=== PATIENT | female | born 1980 | race Two or more races ===

== ENCOUNTER 2019-07-28 19:43 | Emergency (ER) | payer MEDICAID ==
--- NOTE | 2019-07-28 20:08 | EDM.PDOC ---
ED HPI GENERAL MEDICAL PROBLEM - General Chief Complaint: General Stated Complaint: PT HAS LEG CRAMPS Time Seen by Provider: 07/28/19 19:52 - History of Present Illness INITIAL COMMENTS - FREE TEXT/NARRATIVE: HISTORY AND PHYSICAL: History of present illness: The patient is a 39-year-old female with a long-standing history of anxiety and psychiatric issues for which she takes multiple medications and follows with Selene Acosta at [facility] and presents with complaints of over a week of tingling in her arms and legs which is constant but seems to be worse at nighttime when she is trying to sleep. She says that it is not cramping it is more of a tingling sensation and it is discomforting. She has no other systemic complaints of fever chills chest pain shortness of breath abdominal pain nausea or vomiting. The patient says that she has been on these multiple medications for many years and discussed with Selene her provider getting off these medications as she has put on significant weight over the last 3 years. According to the patient her provider gave her a taper that she was to follow over one month to taper off and wean her off these medications. The patient said she was following that and that 2 weeks ago she abruptly stopped several of her medications because she "got inpatient". She says the symptoms started soon after this. She has tried to speak with her provider and has left at least 3 messages about what is going on and has not received a return call so she came here for evaluation. She is currently feeling intermittently anxious but it is not active currently and she is not having any strange or odd thoughts or any other psychiatric issues as a result of weaning herself off these medications. Her fianc at bedside says that she is acting appropriately and normally and they're not concerned about psychiatric issues only about the tingling sensations that she is having. She denies any recent trauma and has no weakness in her extremities. The patient denies that there is any swelling in her extremities or size discrepancy of these extremities she doesn't have any specific deep calf tenderness Review of systems: As per history of present illness and below otherwise all systems reviewed and negative. Past medical history: As per history of present illness and as reviewed below otherwise noncontributory. Surgical history: As per history of present illness and as reviewed below otherwise noncontributory. Social history: No reported history of drug or alcohol abuse. Family history: As per history of present illness and as reviewed below otherwise noncontributory. Physical exam: General: Well-developed well-nourished mildly overweight female who is nontoxic and vital signs are noted by me. She is interactive and appropriate HEENT: Atraumatic, normocephalic, negative for conjunctival pallor or scleral icterus, mucous membranes moist, throat clear, neck supple, nontender, trachea midline. Lungs: Clear to auscultation, breath sounds equal bilaterally, chest nontender. Heart: S1S2, regular rate and rhythm no overt murmurs Abdomen: Soft, nondistended, nontender. NABS Pelvis: Deferred Genitourinary: Deferred. Rectal: Deferred. Extremities: Atraumatic, negative for cords or calf pain. Neurovascular unremarkable. Neuro: Awake, alert, oriented. Cranial nerves II through XII unremarkable. Cerebellum unremarkable. Motor and sensory unremarkable throughout. Exam nonfocal. Diagnostics: CBC CMP magnesium CPK UA with reflex Therapeutics: I discussed with the patient that her abrupt cessation of medications may be triggering her symptoms and that we would be able to check some metabolic components and do some blood work and a urine test but other than that we would be limited in her evaluation of these symptoms. I discussed with her that I will try to help her get connected with her provider at [facility] so that she can have a dialogue about these medications and further care. Impression: Paresthesias of extremities, recent stoppage of long-term medications Definitive disposition and diagnosis as appropriate pending reevaluation and review of above. - Related Data Allergies Allergy/AdvReac Type Severity Reaction Status Date / Time iodine Allergy Hives Verified 07/28/19 19:46 Penicillins Allergy Cannot Verified 07/28/19 19:46 Remember Home Meds: Home Meds Amoxicillin [Amoxil] 1 cap PO BID 08/18/14 [History] ClonazePAM [KlonoPIN] 1 tab PO BID 08/18/14 [History] Hydrocodone/Acetaminophen [Hydrocodone-Acetaminophen 5-325] 1 - 2 tab PO ASDIRECTED PRN 08/18/14 [History] Ondansetron [Zofran] 1 tab PO ASDIRECTED 08/18/14 [History] PARoxetine [Paxil CR] 1 tab PO DAILY 08/18/14 [History] QUEtiapine [SEROquel XR] 0.5 tab PO DAILY 08/18/14 [History] lamoTRIgine [Lamotrigine] 150 mg PO DAILY 08/18/14 [History] Past Medical History HEENT History: Reports: None Cardiovascular History: Reports: None Respiratory History: Reports: None Gastrointestinal History: Reports: None Genitourinary History: Reports: None 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 Musculoskeletal History: Reports: None Neurological History: Reports: None Psychiatric History: Reports: Anxiety, Bipolar, Depression, Mood Swings Endocrine/Metabolic History: Reports: None Hematologic History: Reports: None Immunologic History: Reports: None Oncologic (Cancer) History: Reports: None Dermatologic History: Reports: None - Infectious Disease History Infectious Disease History: Reports: Chicken Pox - Past Surgical History Female Surgical History: Reports: None Social & Family History - Family History Family Medical History: Noncontributory - Tobacco Use Smoking Status *Q: Never Smoker Second Hand Smoke Exposure: No - Caffeine Use Caffeine Use: Reports: None - Recreational Drug Use Recreational Drug Use: No ED ROS GENERAL - Review of Systems Review Of Systems: ROS reveals no pertinent complaints other than HPI. ED EXAM, GENERAL - Physical Exam Exam: See Below (See dictation) Course - Vital Signs Last Recorded V/S: Last Vital Signs Temp 36.4 C 07/28/19 19:47 Pulse 75 07/28/19 19:47 Resp 16 07/28/19 19:47 BP 141/72 H 07/28/19 19:47 Pulse Ox 97 07/28/19 19:47 - Orders/Labs/Meds Labs: Laboratory Tests 07/28/19 07/28/19 07/28/19 Range/Units 20:14 20:14 20:18 WBC 10.78 (4.0-11.0) K/uL RBC 4.70 (4.30-5.90) M/uL Hgb 14.7 (12.0-16.0) g/dL Hct 43.8 (36.0-46.0) % MCV 93.2 (80.0-98.0) fL MCH 31.3 (27.0-32.0) pg MCHC 33.6 (31.0-37.0) g/dL RDW Std Deviation 45.7 (28.0-62.0) fl RDW Coeff of Jules 13 (11.0-15.0) % Plt Count 276 (150-400) K/uL MPV 10.40 (7.40-12.00) fL Neut % (Auto) 63.0 (48.0-80.0) % Lymph % (Auto) 27.3 (16.0-40.0) % Sierra % (Auto) 7.8 (0.0-15.0) % Eos % (Auto) 1.6 (0.0-7.0) % Baso % (Auto) 0.3 (0.0-1.5) % Neut # (Auto) 6.8 H (1.4-5.7) K/uL Lymph # (Auto) 2.9 H (0.6-2.4) K/uL Sierra # (Auto) 0.8 (0.0-0.8) K/uL Eos # (Auto) 0.2 (0.0-0.7) K/uL Baso # (Auto) 0.0 (0.0-0.1) K/uL Nucleated RBC % 0.0 /100WBC Nucleated RBCs # 0 K/uL Sodium 143 (136-145) mmol/L Potassium 4.5 (3.5-5.1) mmol/L Chloride 107 (98-107) mmol/L Carbon Dioxide 25.7 (21.0-32.0) mmol/L BUN 16 (7.0-18.0) mg/dL Creatinine 0.6 (0.6-1.0) mg/dL Est Cr Clr Drug Dosing 105.16 mL/min Estimated GFR (MDRD) > 60.0 ml/min Glucose 96 (74-106) mg/dL Calcium 8.3 L (8.5-10.1) mg/dL Magnesium 2.4 (1.8-2.4) mg/dL Total Bilirubin 0.1 L (0.2-1.0) mg/dL AST 13 L (15-37) IU/L ALT 17 (14-63) IU/L Alkaline Phosphatase 67 (46-116) U/L Creatine Kinase 58 (26-308) U/L Total Protein 6.8 (6.4-8.2) g/dL Albumin 3.4 (3.4-5.0) g/dL Globulin 3.4 (2.6-4.0) g/dL Albumin/Globulin Ratio 1.0 (0.9-1.6) Urine Color YELLOW Urine Appearance HAZY Urine pH 6.0 (5.0-8.0) Ur Specific Terral >= 1.030 (1.001-1.035) Urine Protein NEGATIVE (NEGATIVE) mg/dL Urine Glucose (UA) NEGATIVE (NEGATIVE) mg/dL Urine Ketones NEGATIVE (NEGATIVE) mg/dL Urine Occult Blood LARGE H (NEGATIVE) Urine Nitrite NEGATIVE (NEGATIVE) Urine Bilirubin NEGATIVE (NEGATIVE) Urine Urobilinogen 0.2 (<2.0) EU/dL Ur Leukocyte Esterase NEGATIVE (NEGATIVE) Urine RBC 10-15 (0-2/HPF) Urine WBC 1-3 (0-5/HPF) Ur Epithelial Cells FEW (NONE-FEW) Urine Bacteria FEW (NEGATIVE) Urine Mucus MODERATE (NONE-MOD) Departure - Departure Time of Disposition: 20:48 Disposition: Home, Self-Care 01 Condition: Good Clinical Impression: Paresthesias - Discharge Information Referrals: PCP,None [Primary Care Provider] - Forms: ED Department Discharge Additional Instructions: The following information is given to patients seen in the emergency department who are being discharged to home. This information is to outline your options for follow-up care. We provide all patients seen in our emergency department with a follow-up referral. The need for follow-up, as well as the timing and circumstances, are variable depending upon the specifics of your emergency department visit. If you don't have a primary care physician on staff, we will provide you with a referral. We always advise you to contact your personal physician following an emergency department visit to inform them of the circumstance of the visit and for follow-up with them and/or the need for any referrals to a consulting specialist. The emergency department will also refer you to a specialist when appropriate. This referral assures that you have the opportunity for followup care with a specialist. All of these measure are taken in an effort to provide you with optimal care, which includes your followup. Under all circumstances we always encourage you to contact your private physician who remains a resource for coordinating your care. When calling for followup care, please make the office aware that this follow-up is from your recent emergency room visit. If for any reason you are refused follow-up, please contact the [facility] emergency department at and ask to speak to the emergency department charge nurse. [address] [place] [address] Please drink more hydration such as water juices and Gatorade as your testing today indicates that you need more hydration. Please connect with your provider at [facility] to discuss your recent stoppage of medications and your current symptoms for further care and evaluation. Return to ER as needed and as discussed
[2019-07-28 20:43] LABS: BLOOD UREA NITROGEN,BUN 16 mg/dL (7.0-18.0); CARBON DIOXIDE,CO2 25.7 mmol/L (21.0-32.0); CHLORIDE,CL 107 mmol/L (98-107); GLUCOSE RANDOM 96 mg/dL (74-106); POTASSIUM,K 4.5 mmol/L (3.5-5.1); SODIUM,NA 143 mmol/L (136-145)
[2019-07-28 21:03] VITALS: BP 132/78; PULSE 79
== END 2019-07-28 21:02 | disposition home or self-care (01) ==
LOC: MW.ED 19:43
DX: R20.2 Paresthesia of skin (principal); Z88.0 Allergy status to penicillin; Z91.048 Other nonmedicinal substance allergy status; Z79.899 Other long term (current) drug therapy
CPT/HCPCS: 36415; 80053; 81001; 82550; 83735; 85025; 99284

== ENCOUNTER 2019-08-13 17:32 | Emergency (ER) | payer MEDICAID ==
--- NOTE | 2019-08-13 17:33 | EDM.PDOC ---
ED HPI GENERAL MEDICAL PROBLEM - General Chief Complaint: ENT Problem Stated Complaint: STREP THROAT Time Seen by Provider: 08/13/19 17:43 Source of Information: Reports: Patient History Limitations: Reports: No Limitations - History of Present Illness INITIAL COMMENTS - FREE TEXT/NARRATIVE: HISTORY AND PHYSICAL: History of present illness: Patient is a 39-year-old female presents to the ED With complaint of sore throat. She states she is having pain with swallowing since yesterday. She reports history of strep throat. Denies fevers, chills, nausea, vomiting, abdominal pain. Review of systems: As per history of present illness and below otherwise all systems reviewed and negative. Past medical history: As per history of present illness and as reviewed below otherwise noncontributory. Surgical history: As per history of present illness and as reviewed below otherwise noncontributory. Social history: No reported history of drug or alcohol abuse. Family history: As per history of present illness and as reviewed below otherwise noncontributory. Physical exam: General: Patient sitting comfortably in no acute distress and nontoxic appearing HEENT: Tonsils are 1+ and erythematous without exudate. Atraumatic, normocephalic, pupils reactive, negative for conjunctival pallor or scleral icterus, mucous membranes moist, throat clear, neck supple, nontender, trachea midline. No meningeal signs. Lungs: Clear to auscultation, breath sounds equal bilaterally, chest nontender. Heart: S1S2, regular, negative for clicks, rubs, or overt murmur. Abdomen: Soft, nondistended, nontender. Negative for masses or hepatosplenomegaly. Negative for costovertebral tenderness. No rigidity, rebound , guarding. Pelvis: Stable nontender. Genitourinary: Deferred. Rectal: Deferred. Extremities: Atraumatic, negative for cords or calf pain. Neurovascular unremarkable. Neuro: Awake, alert, oriented. Cranial nerves II through XII unremarkable. Cerebellum unremarkable. Motor and sensory unremarkable throughout. Exam nonfocal. Notes: Diagnostics: rapid strep Therapeutics: [] Prescriptions: Keflex Impression: Strep pharyngitis Plan: take antibiotic as instructed Alternate tylenol and ibuprofen as needed Follow up with primary care provider Return to ED as needed as discussed Definitive disposition and diagnosis as appropriate pending reevaluation and review of above. - Related Data Allergies Allergy/AdvReac Type Severity Reaction Status Date / Time iodine Allergy Hives Verified 08/13/19 17:46 Penicillins Allergy Cannot Verified 08/13/19 17:46 Remember Home Meds: Home Meds Amoxicillin [Amoxil] 1 cap PO BID 08/18/14 [History] ClonazePAM [KlonoPIN] 1 tab PO BID 08/18/14 [History] Hydrocodone/Acetaminophen [Hydrocodone-Acetaminophen 5-325] 1 - 2 tab PO ASDIRECTED PRN 08/18/14 [History] Ondansetron [Zofran] 1 tab PO ASDIRECTED 08/18/14 [History] PARoxetine [Paxil CR] 1 tab PO DAILY 08/18/14 [History] QUEtiapine [SEROquel XR] 0.5 tab PO DAILY 08/18/14 [History] lamoTRIgine [Lamotrigine] 150 mg PO DAILY 08/18/14 [History] Cephalexin [Keflex] 500 mg PO BID 10 Days #20 capsule 08/13/19 [Rx] Past Medical History HEENT History: Reports: None Cardiovascular History: Reports: None Respiratory History: Reports: None Gastrointestinal History: Reports: None Genitourinary History: Reports: None 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 Musculoskeletal History: Reports: None Neurological History: Reports: None Psychiatric History: Reports: Anxiety, Bipolar, Depression, Mood Swings Endocrine/Metabolic History: Reports: None Hematologic History: Reports: None Immunologic History: Reports: None Oncologic (Cancer) History: Reports: None Dermatologic History: Reports: None - Infectious Disease History Infectious Disease History: Reports: Chicken Pox - Past Surgical History Female Surgical History: Reports: None Social & Family History - Family History Family Medical History: Noncontributory - Caffeine Use Caffeine Use: Reports: None ED ROS ENT - Review of Systems Review Of Systems: ROS reveals no pertinent complaints other than HPI. ED EXAM, ENT - Physical Exam Exam: See Below (see dictation) Course - Vital Signs Last Recorded V/S: Last Vital Signs Temp 97.7 F 08/13/19 17:48 Pulse 122 H 08/13/19 17:48 Resp 16 08/13/19 17:48 BP 140/79 08/13/19 17:48 Pulse Ox 96 08/13/19 17:48 Departure - Departure Time of Disposition: 18:04 Disposition: Home, Self-Care 01 Condition: Good Clinical Impression: Strep pharyngitis - Discharge Information Prescriptions: Cephalexin [Keflex] 500 mg PO BID 10 Days #20 capsule Referrals: PCP,None [Primary Care Provider] - Forms: ED Department Discharge Additional Instructions: The following information is given to patients seen in the emergency department who are being discharged to home. This information is to outline your options for follow-up care. We provide all patients seen in our emergency department with a follow-up referral. The need for follow-up, as well as the timing and circumstances, are variable depending upon the specifics of your emergency department visit. If you don't have a primary care physician on staff, we will provide you with a referral. We always advise you to contact your personal physician following an emergency department visit to inform them of the circumstance of the visit and for follow-up with them and/or the need for any referrals to a consulting specialist. The emergency department will also refer you to a specialist when appropriate. This referral assures that you have the opportunity for follow-up care with a specialist. All of these measure are taken in an effort to provide you with optimal care, which includes your follow-up. Under all circumstances we always encourage you to contact your private physician who remains a resource for coordinating your care. When calling for follow-up care, please make the office aware that this follow-up is from your recent emergency room visit. If for any reason you are refused follow-up, please contact the [facility] Emergency Department at and asked to speak to the emergency department charge nurse. [facility] [address] [place] [id number] [facility] [address] [place] [id number] take antibiotic as instructed Alternate tylenol and ibuprofen as needed Follow up with primary care provider Return to ED as needed as discussed
[2019-08-13 17:51] VITALS: BP 140/79; PULSE 122
== END 2019-08-13 18:18 | disposition home or self-care (01) ==
LOC: MW.ED 17:32
DX: J02.0 Streptococcal pharyngitis (principal); F31.9 Bipolar disorder, unspecified; F41.9 Anxiety disorder, unspecified; Z79.899 Other long term (current) drug therapy; Z88.0 Allergy status to penicillin; Z88.8 Allergy status to other drugs, medicaments and biological substances
CPT/HCPCS: 87880-QW; 99283

== ENCOUNTER 2019-09-05 12:41 | Emergency (ER) | payer MEDICAID ==
[2019-09-05 12:54] VITALS: PULSE 110
[2019-09-05 13:04] VITALS: BP 133/91
--- NOTE | 2019-09-05 13:07 | EDM.PDOC ---
ED HPI GENERAL MEDICAL PROBLEM - General Chief Complaint: Behavioral/Psych Stated Complaint: JUST NOT FEELING RIGHT Time Seen by Provider: 09/05/19 12:54 - History of Present Illness INITIAL COMMENTS - FREE TEXT/NARRATIVE: HISTORY AND PHYSICAL: History of present illness: Patient 39-year-old female with history of bipolar disorder, schizophrenia and anxiety presents with a concern of medical screening exam and possible referral. Patient does have established mental health care locally she does not feel she needs inpatient nor does her she denies suicidal homicidal ideation. Review of systems: As per history of present illness and below otherwise all systems reviewed and negative. Past medical history: As per history of present illness and as reviewed below otherwise noncontributory. Surgical history: As per history of present illness and as reviewed below otherwise noncontributory. Social history: No reported history of drug or alcohol abuse. Family history: As per history of present illness and as reviewed below otherwise noncontributory. Physical exam: HEENT: Atraumatic, normocephalic, pupils reactive, negative for conjunctival pallor or scleral icterus, mucous membranes moist, throat clear, neck supple, nontender, trachea midline. Lungs: Clear to auscultation, breath sounds equal bilaterally, chest nontender. Heart: S1S2, regular, negative for clicks, rubs, or JVD. Abdomen: Soft, nondistended, nontender. Negative for masses or hepatosplenomegaly. Negative for costovertebral tenderness. Pelvis: Stable nontender. Genitourinary: Deferred. Rectal: Deferred. Extremities: Atraumatic, negative for cords or calf pain. Neurovascular unremarkable. Neuro: Awake, alert, oriented. Cranial nerves II through XII unremarkable. Cerebellum unremarkable. Motor and sensory unremarkable throughout. Exam nonfocal. Diagnostics: Deferred Therapeutics: None Impression: #1 history of bipolar disorder #2 history of anxiety #3 medical screening exam # 4 history of schizophrenia Definitive disposition and diagnosis as appropriate pending reevaluation and review of above. - Related Data Allergies Allergy/AdvReac Type Severity Reaction Status Date / Time iodine Allergy Hives Verified 09/05/19 12:45 Penicillins Allergy Cannot Verified 09/05/19 12:45 Remember Home Meds: Home Meds Doxylamine Succinate [Unisom] 25 mg PO BEDTIME 09/05/19 [History] FLUoxetine HCl [Fluoxetine] 60 mg PO DAILY 09/05/19 [History] Haloperidol [Haldol] 5 mg PO ASDIRECTED 09/05/19 [History] Melatonin 3 mg PO BEDTIME 09/05/19 [History] Ziprasidone HCl [Geodon] 20 mg PO BID 09/05/19 [History] busPIRone [Buspar] 30 mg PO BID 09/05/19 [History] diphenhydrAMINE [Benadryl] 25 mg PO BEDTIME 09/05/19 [History] Past Medical History HEENT History: Reports: None Cardiovascular History: Reports: None Respiratory History: Reports: None Gastrointestinal History: Reports: None Genitourinary History: Reports: None 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 Musculoskeletal History: Reports: None Neurological History: Reports: None Psychiatric History: Reports: Anxiety, Bipolar, Depression, Mood Swings, Psych Hospitalization(s) Endocrine/Metabolic History: Reports: None Hematologic History: Reports: None Immunologic History: Reports: None Oncologic (Cancer) History: Reports: None Dermatologic History: Reports: None - Infectious Disease History Infectious Disease History: Reports: Chicken Pox - Past Surgical History Female Surgical History: Reports: None Social & Family History - Family History Family Medical History: Noncontributory - Caffeine Use Caffeine Use: Reports: None - Recreational Drug Use Recreational Drug Use: No ED ROS GENERAL - Review of Systems Review Of Systems: ROS reveals no pertinent complaints other than HPI. ED EXAM, GENERAL - Physical Exam Exam: See Below (dictation) Course - Vital Signs Last Recorded V/S: Last Vital Signs Temp 35.9 C 09/05/19 12:48 Pulse 110 H 09/05/19 12:48 Resp 21 H 09/05/19 12:48 BP 133/91 H 09/05/19 13:02 Pulse Ox 95 09/05/19 12:48 Departure - Departure Time of Disposition: 13:06 Disposition: Home, Self-Care 01 Condition: Good Clinical Impression: Anxiety, Schizophrenia, History of bipolar disorder - Discharge Information Referrals: PCP,Unknown [Primary Care Provider] - Additional Instructions: The following information is given to patients seen in the emergency department who are being discharged to home. This information is to outline your options for follow-up care. We provide all patients seen in our emergency department with a follow-up referral. The need for follow-up, as well as the timing and circumstances, are variable depending upon the specifics of your emergency department visit. If you don't have a primary care physician on staff, we will provide you with a referral. We always advise you to contact your personal physician following an emergency department visit to inform them of the circumstance of the visit and for follow-up with them and/or the need for any referrals to a consulting specialist. The emergency department will also refer you to a specialist when appropriate. This referral assures that you have the opportunity for followup care with a specialist. All of these measure are taken in an effort to provide you with optimal care, which includes your followup. Under all circumstances we always encourage you to contact your private physician who remains a resource for coordinating your care. When calling for followup care, please make the office aware that this follow-up is from your recent emergency room visit. If for any reason you are refused follow-up, please contact the [facility] emergency department at and asked to speak to the emergency department charge nurse. Follow-up primary medical doctor in mental health as discussed return as needed as discussed
== END 2019-09-05 13:21 | disposition home or self-care (01) ==
LOC: MW.ED 12:41
DX: F41.9 Anxiety disorder, unspecified (principal); F20.9 Schizophrenia, unspecified; F31.9 Bipolar disorder, unspecified; Z79.899 Other long term (current) drug therapy; Z88.0 Allergy status to penicillin; Z88.8 Allergy status to other drugs, medicaments and biological substances
CPT/HCPCS: 99284

== ENCOUNTER 2019-09-09 11:05 | Emergency (ER) | payer MEDICAID ==
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
--- NOTE | 2019-09-09 13:19 | CT ---
CT cervical spine Technique: Multiple axial sections were obtained from above C1 inferiorly to the bottom of T2. Reconstructed sagittal and coronal images were reviewed. Comparison: No previous cervical spine imaging is available. Findings: Vertebral body heights and disc spaces are maintained. No fracture is identified. No bony central or bony neural foraminal stenosis is seen. Visualized lung apices are clear. No abnormal subluxation is seen. Soft tissue windows were obtained which shows no discrete soft tissue abnormality. Impression: 1. Nothing acute is seen on CT study of the cervical spine. 2. No discrete soft tissue findings are seen. Diagnostic code #1 MTDD
--- NOTE | 2019-09-09 13:20 | CT ---
Head CT Technique: Multiple axial sections through the brain were obtained. Intravenous contrast was not utilized. Comparison: No prior intracranial imaging is available. Findings: Ventricles along with basal cisterns and sulci over the convexities are within normal limits for the patient's age. No abnormal parenchymal densities are seen. No evidence of intracranial hemorrhage. No midline shift or mass effect is seen. Bone window settings were reviewed which shows no acute calvarial abnormality. Visualized sinuses show nothing acute. Mastoid sinuses are clear. Impression: Nothing acute is identified on noncontrast head CT exam. Diagnostic code #1 MTDD
[2019-09-09 13:26] LABS: ACETAMINOPHEN <2.0 ug/mL; BLOOD UREA NITROGEN,BUN 8 mg/dL (7.0-18.0); CARBON DIOXIDE,CO2 27.4 mmol/L (21.0-32.0); CHLORIDE,CL 103 mmol/L (98-107); GLUCOSE RANDOM 109 mg/dL (74-106); POTASSIUM,K 3.3 mmol/L (3.5-5.1); SODIUM,NA 142 mmol/L (136-145)
[2019-09-09] MEDS ORDERED: LORazepam 1 MG Tab PO ONE (14:26)
[2019-09-09 14:52] VITALS: BP 145/102; PULSE 92
== END 2019-09-09 15:01 | disposition home or self-care (01) ==
LOC: MW.ED 11:05
DX: F29 Unspecified psychosis not due to a substance or known physiological condition (principal); R45.851 Suicidal ideations; M54.2 Cervicalgia; F41.9 Anxiety disorder, unspecified; F32.9 Major depressive disorder, single episode, unspecified; F20.9 Schizophrenia, unspecified; Z88.8 Allergy status to other drugs, medicaments and biological substances; Z88.0 Allergy status to penicillin; Z79.899 Other long term (current) drug therapy; V48.6XXA Car passenger injured in noncollision transport accident in traffic accident, initial encounter; Y93.39 Activity, other involving climbing, rappelling and jumping off; Y92.410 Unspecified street and highway as the place of occurrence of the external cause
CPT/HCPCS: 36415; 70450; 72125; 80053; 80305; 80320; 80329; 81003; 84443; 84702; 85025; 99285; A9270; 99284; G0480

== ENCOUNTER 2019-09-23 11:01 | Emergency (ER) | payer MEDICAID ==
[2019-09-23 11:10] VITALS: BP 151/97; PULSE 117
[2019-09-23] MEDS ORDERED: hydrOXYzine HCl 25 MG Tab PO ONE (11:20)
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
== END 2019-09-23 12:11 | disposition home or self-care (01) ==
LOC: MW.ED 11:01
DX: F41.9 Anxiety disorder, unspecified (principal); F31.9 Bipolar disorder, unspecified; Z88.0 Allergy status to penicillin; Z88.8 Allergy status to other drugs, medicaments and biological substances; Z79.899 Other long term (current) drug therapy
CPT/HCPCS: 93005; 99283; A9270

== ENCOUNTER 2019-09-25 18:46 | Emergency (ER) | payer MEDICAID | END 2019-09-25 20:01 | disposition left against medical advice (07) | LOC: MW.ED 18:46 | DX: Z53.21 Procedure and treatment not carried out due to patient leaving prior to being seen by health care provider (principal) ==

== ENCOUNTER 2019-11-04 08:07 | Emergency (ER) | payer MEDICAID ==
[2019-11-04] MEDS ORDERED: LORazepam 2 MG/ML SDV IM ONE (08:59)
--- NOTE | 2019-11-04 10:16 | EDM.PDOCBH ---
ED HPI GENERAL MEDICAL PROBLEM - General Chief Complaint: Behavioral/Psych Stated Complaint: PAIN ATTACKS Time Seen by Provider: 11/04/19 09:25 Source of Information: Reports: Patient History Limitations: Reports: No Limitations - History of Present Illness INITIAL COMMENTS - FREE TEXT/NARRATIVE: Patient is 39-year-old female with a past medical history of behavioral health, generalized anxiety disorder with panic attacks, substance abuse. Patient is complaining of having a panic attack. Panic attack has been ongoing for the past 2 days. Patient denies taking any medication for this as she has not been prescribed clonazepam in a while. States she feels anxious with generalized tingling in her fingers and sensation of dread. Patient denies have any specific symptoms and denies any drug use over the past several days. Patient denies chest pain shortness of breath, fevers or recent illnesses. Times are consistent with prior panic attacks. There normally improved with benzodiazepine medications - Related Data Allergies Allergy/AdvReac Type Severity Reaction Status Date / Time iodine Allergy Hives Verified 11/04/19 08:17 Penicillins Allergy Cannot Verified 11/04/19 08:17 Remember Home Meds: Home Meds Ziprasidone HCl [Geodon] 80 mg PO BID 09/05/19 [History] busPIRone [Buspar] 30 mg PO TID 09/05/19 [History] DULoxetine HCl [Cymbalta] 60 mg PO DAILY 09/23/19 [History] Past Medical History - Past Health History Medical/Surgical History: Denies Medical/Surgical History HEENT History: Reports: None, Other (See Below) Cardiovascular History: Reports: None, Other (See Below) Other Cardiovascular History: unable to assess Respiratory History: Reports: None, Other (See Below) Other Respiratory History: unable to assess Gastrointestinal History: Reports: None, Other (See Below) Other Gastrointestinal History: unable to assess Genitourinary History: Reports: None, Other (See Below) Other Genitourinary History: unable to assess CARPET SEWING MACHINE OPERATOR History: Reports: None, Other (See Below) Other CARPET SEWING MACHINE OPERATOR History: unable to assess Musculoskeletal History: Reports: None, Other (See Below) Other Musculoskeletal History: unable to assess Neurological History: Reports: None, Other (See Below) Other Neuro History: unable to assess Psychiatric History: Reports: Anxiety, Bipolar, Depression, Mood Swings, Other ( See Below), Psych Hospitalization(s) Other Psychiatric History: unable to assess Endocrine/Metabolic History: Reports: None, Other (See Below) Other Endocrine/Metabolic History: unable to assess Hematologic History: Reports: None, Other (See Below) Other Hematologic History: unable to assess Immunologic History: Reports: None, Other (See Below) Other Immunologic History: unable to assess Oncologic (Cancer) History: Reports: None, Other (See Below) Other Oncologic History: unable to assess Dermatologic History: Reports: None, Other (See Below) Other Dermatologic History: unable to assess - Infectious Disease History Infectious Disease History: Reports: Chicken Pox, Other (See Below) Other Infectious Disease History: unable to assess - Past Surgical History HEENT Surgical History: Reports: None, Other (See Below) Cardiovascular Surgical History: Reports: None, Other (See Below) Respiratory Surgical History: Reports: None, Other (See Below) GI Surgical History: Reports: None, Other (See Below) Female Surgical History: Reports: None, Other (See Below) Endocrine Surgical History: Reports: None, Other (See Below) Neurological Surgical History: Reports: None, Other (See Below) Musculoskeletal Surgical History: Reports: None, Other (See Below) Dermatological Surgical History: Reports: None, Other (See Below) Social & Family History - Family History Family Medical History: Unobtainable - Tobacco Use Smoking Status *Q: Never Smoker - Caffeine Use Caffeine Use: Reports: None Caffeine Use Comment: unable to assess - Recreational Drug Use Recreational Drug Use: No ED ROS GENERAL - Review of Systems Review Of Systems: See Below Free Text/Narrative/Comment: In addition to that documented in the HPI above, the additional ROS was obtained : Constitutional: Denies fevers or chills Eyes: Denies vision changes ENMT: Denies sore throat CV: Denies chest pain Resp: Denies SOB GI: Denies vomiting or diarrhea : Denies painful urination MSK: Denies recent trauma Skin: Denies new rashes Neuro: Denies new numbness or tingling or weakness Endocrine: Denies unexpected weight loss Heme: Denies bleeding disorders ED EXAM, BEHAVIORAL HEALTH - Physical Exam Exam: See Below Text/Narrative:: I have reviewed the triage vital signs Const: Well nourished, well developed, appears stated age Eyes: PERRL, no conjunctival injection HENT: NCAT, Neck supple without meningismus CV: RRR, Warm, well-perfused extremities RESP: CTAB, Unlabored respiratory effort GI: soft, non-tender, non-distended, no masses MSK: No gross deformities appreciated Skin: Warm, dry. No rashes Neuro: Alert, cigar head stringer II-XII grossly intact. Sensation and motor function of extremities grossly intact. Psych: Appears generally anxious COURSE, BEHAVIORAL HEALTH COMP - Course Vital Signs: Last Vital Signs Temp 35.7 C 11/04/19 08:15 Pulse 129 H 11/04/19 08:15 Resp 18 11/04/19 08:15 BP 142/88 H 11/04/19 08:15 Pulse Ox 97 11/04/19 08:15 Orders, Labs, Meds: Medications Discontinued Medications Generic Name Dose Route Start Last Admin Trade Name Silvana PRN Reason Stop Dose Admin Lorazepam 2 mg 11/04/19 08:59 11/04/19 09:11 Ativan IM 11/04/19 09:00 1 mg ONETIME ONE Administration Departure - Departure Time of Disposition: 10:14 Disposition: Home, Self-Care 01 Condition: Good Clinical Impression: Panic disorder - Discharge Information Instructions: Panic Attack, [id number] Referrals: Maria G Acosta HEAD OF BIOLOGY [Primary Care Provider] - Sepsis Event Note - Evaluation Sepsis Screening Result: No Definite Risk - Focused Exam Vital Signs: Vital Signs Temp Pulse Resp BP Pulse Ox 11/04/19 08:15 35.7 C 129 H 18 142/88 H 97 Date Exam was Performed: 11/04/19 Time Exam was Performed: 10:10 - Assessment/Plan Assessment:: Patient is 31-year-old female presenting with generalized anxiety disorder with panic attack. Patient has symptoms consistent with prior panic attacks and does not have any evidence of cardiac or respiratory issues at this time. There is low concern for acute coronary syndrome, PE, or arrhythmia. Patient symptoms improved after administration of 1 mg of Ativan IM. Patient instructed to follow-up with psychiatry as an outpatient for management of chronic generalized anxiety disorder. Patient not suicidal homicidal or acutely psychotic and therefore can be discharged home. Patient is not overly sedated and given precautions about operating motor vehicle
[2019-11-04 10:30] VITALS: BP 119/78; PULSE 93
== END 2019-11-04 10:28 | disposition home or self-care (01) ==
LOC: MW.ED 08:07
DX: F41.0 Panic disorder [episodic paroxysmal anxiety] (principal); Z88.0 Allergy status to penicillin; Z88.8 Allergy status to other drugs, medicaments and biological substances; Z79.899 Other long term (current) drug therapy
CPT/HCPCS: 96372; 99283; J2060

== ENCOUNTER 2019-11-17 12:02 | Emergency (ER) | payer MEDICAID ==
[2019-11-17] MEDS ORDERED: LORazepam 2 MG/ML SDV IVPUSH STA (12:41)
[2019-11-17] MEDS ORDERED: diphenhydrAMINE 50 MG/ML SDV IVPUSH ONE (12:41)
[2019-11-17] MEDS ORDERED: Haloperidol Lactate 5 MG/ML SDV IM ONE (12:43)
--- NOTE | 2019-11-17 13:37 | EDM.PDOC ---
ED HPI GENERAL MEDICAL PROBLEM - General Chief Complaint: Behavioral/Psych Stated Complaint: PANIC ATTACK Time Seen by Provider: 11/17/19 12:28 - History of Present Illness INITIAL COMMENTS - FREE TEXT/NARRATIVE: HPI 39 female with schizophrenia, bipolar disorder, psychosis, anxiety/panic disorder, and a history of PCP and amphetamine abuse presents complaining of a panic attack that began at home has been refractory to attempts to refocus her thinking. Denies chest pain, shortness breath, or recent illness. ROS with no recent constitutional symptoms. Exam HR 93, RR 20, BP 132/83, T 35.6C, SaO2 100% on room air. Gen: Pleasant, non-toxic appearing, resting comfortably HEENT: NC, AT, PEERL, EOMI. Resp: Clear to auscultation bilaterally. Unlabored respirations with a normal work of breathing. Card: Regular rate and rhythm. Extremities warm and well perfused. GI: Non-distended. : Deferred MSK: No visible deformities, strength and tone without visually appreciable deficit. Neuro: alert and oriented 3, no facial asymmetry, vision and hearing WNL. Heme/Lymph: Deferred Skin: Normal color with no visible lesions (other than noted above). Psych: markedly anxious mood and affect. MDM Previous chart, nursing note, and vitals reviewed. A: 39 female with schizophrenia, bipolar disorder, psychosis, anxiety/panic disorder, and a history of PCP and amphetamine abuse presents complaining of a panic attack that began at home has been refractory to attempts to refocus her thinking. DDx & Evaluation: 1 mg haloperidol, 12.5 mg diphenhydramine and 0.5 mg Ativan ordered. Patient declined haloperidol. Patient with improvement in symptoms, discharge with PCP follow-up recommended. No features suggestive of ACS, PE, infection, or other acute medical process that would be a precipitating event for the patients anxiety. Impression: anxiety. - Related Data Allergies Allergy/AdvReac Type Severity Reaction Status Date / Time iodine Allergy Hives Verified 11/17/19 12:30 Penicillins Allergy Cannot Verified 11/17/19 12:30 Remember Home Meds: Home Meds Ziprasidone HCl [Geodon] 80 mg PO BID 09/05/19 [History] busPIRone [Buspar] 30 mg PO TID 09/05/19 [History] DULoxetine HCl [Cymbalta] 60 mg PO DAILY 09/23/19 [History] Past Medical History - Past Health History Medical/Surgical History: Denies Medical/Surgical History HEENT History: Reports: None, Other (See Below) Cardiovascular History: Reports: None, Other (See Below) Other Cardiovascular History: unable to assess Respiratory History: Reports: None, Other (See Below) Other Respiratory History: unable to assess Gastrointestinal History: Reports: None, Other (See Below) Other Gastrointestinal History: unable to assess Genitourinary History: Reports: None, Other (See Below) Other Genitourinary History: unable to assess SOCIAL SERVICES History: Reports: None, Other (See Below) Other SOCIAL SERVICES History: unable to assess Musculoskeletal History: Reports: None, Other (See Below) Other Musculoskeletal History: unable to assess Neurological History: Reports: None, Other (See Below) Other Neuro History: unable to assess Psychiatric History: Reports: Anxiety, Bipolar, Depression, Mood Swings, Other ( See Below), Psych Hospitalization(s) Other Psychiatric History: unable to assess Endocrine/Metabolic History: Reports: None, Other (See Below) Other Endocrine/Metabolic History: unable to assess Hematologic History: Reports: None, Other (See Below) Other Hematologic History: unable to assess Immunologic History: Reports: None, Other (See Below) Other Immunologic History: unable to assess Oncologic (Cancer) History: Reports: None, Other (See Below) Other Oncologic History: unable to assess Dermatologic History: Reports: None, Other (See Below) Other Dermatologic History: unable to assess - Infectious Disease History Infectious Disease History: Reports: None Other Infectious Disease History: unable to assess - Past Surgical History HEENT Surgical History: Reports: None, Other (See Below) Cardiovascular Surgical History: Reports: None, Other (See Below) Respiratory Surgical History: Reports: None, Other (See Below) GI Surgical History: Reports: None, Other (See Below) Female Surgical History: Reports: None, Other (See Below) Endocrine Surgical History: Reports: None, Other (See Below) Neurological Surgical History: Reports: None, Other (See Below) Musculoskeletal Surgical History: Reports: None, Other (See Below) Dermatological Surgical History: Reports: None, Other (See Below) Social & Family History - Family History Family Medical History: Unobtainable - Tobacco Use Smoking Status *Q: Never Smoker - Caffeine Use Caffeine Use: Reports: None Caffeine Use Comment: unable to assess - Recreational Drug Use Recreational Drug Use: No ED ROS GENERAL - Review of Systems Review Of Systems: See Below ED EXAM, GENERAL - Physical Exam Exam: See Below Course - Vital Signs Last Recorded V/S: Last Vital Signs Temp 35.6 C 11/17/19 12:30 Pulse 93 11/17/19 12:30 Resp 20 11/17/19 12:30 BP 132/83 11/17/19 12:30 Pulse Ox 100 11/17/19 12:30 - Orders/Labs/Meds Meds: Medications Discontinued Medications Generic Name Dose Route Start Last Admin Trade Name Silvana PRN Reason Stop Dose Admin Diphenhydramine HCl 12.5 mg 11/17/19 12:41 11/17/19 12:54 Benadryl IVPUSH 11/17/19 12:42 12.5 mg ONETIME ONE Administration Haloperidol Lactate 1 mg 11/17/19 12:43 11/17/19 12:54 Haldol IM 11/17/19 12:44 Not Given ONETIME ONE Lorazepam 0.5 mg 11/17/19 12:41 11/17/19 12:54 Ativan IVPUSH 11/17/19 12:42 0.5 mg NOW STA Administration Departure - Departure Time of Disposition: 13:35 Disposition: Home, Self-Care 01 Clinical Impression: Anxiety - Discharge Information Referrals: Maria G Acosta CUSTODIAL FOREMAN [Primary Care Provider] - Additional Instructions: You were in seen in the [facility] Emergency Department for evaluation of anxiety. Please follow up with your mental health provider within 24 hours. Madeleine read and follow all of the instructions below. Please follow up with your primary care physician as needed. When calling for follow-up care, please make the office aware that this follow-up is from your recent emergency room visit. If for any reason you are refused follow-up, please contact the [facility] Emergency Department at and asked to speak to the emergency department charge nurse. Your care today was limited to identifying and treating emergent medical problems only. Many people have subtle differences in their test results that require follow up with their outpatient physician(s) to correctly determine if this represents a normal variation or concerning abnormality with respect to your specific health. The care given to you today was limited to identifying and treating emergent medical problems - you need to request a copy of all of your medical records from today's visit and follow up with your outpatient physician(s) to review both today's visit and your overall health. If you have any new symptoms or if you are at all concerned about your health please return immediately to the emergency department. Prescriptions: If you are uninsured or have financial difficulties with filling your prescription(s), you may consider using a free pharmacy discount service such as [employer] ([employer] [facility]) or [facility] ([employer]). These services allow you to search for a medication on your phone (or computer) and obtain a coupon that usually has a significant discount from the list dempsey at a pharmacy. Your physician as well as [facility] does not have a financial relationship with either of these services. You may also wish to speak with your physician to determine if lower cost prescriptions are possible. Obtaining primary care: 1. [facility] provides pediatrics (children), family medicine (children, adults, and some obstetrical care), and internal medicine (adults). Further specialty care is also available. Same day appointments are available. They may be contacted at [phone] and are open Friday through Friday 8 AM to 5 PM. The are located at [facility], [address] [place] [address]. 2. [facility] offers family medicine, internal medicine, [facility], and further specialty care. [facility] may be contacted at [phone]. [facility] is located at [address] [place] [address], [phone]. 3. If you have health insurance, please also contact your insurer for a list of accepting providers under your policy, you may contact these providers for further health care. Occupational health: Work related injuries may consider following up with [facility], . Occupational health services are located at [address] [place] [id number] and are open Friday through Friday from 7: 30 am to 5:00 pm. Obstetrical and Gynecological Care: [facility], , Friday through Friday 8 AM to 5 PM. [address] [place] [address]. Eyecare: If you have an eye injury you should follow up with your core microarchitect or with [facility], at [phone] or [phone] , they are located at [facility] [place] [address]. Dental Care Yung Anderson DDS. [address] [facility].[place], [place]. Ph. [phone] Brendon Anderson DDS MS. [address] [facility], [place], [place]. Ph. [phone] Baldemar Smith DDS. 10 11/[address] [place] [address]. Ph. [phone] Salvador Saleh DDS. [address] [facility] 4 [place], [place]. Ph. [phone] Antoine Carvalho DDS PC. [address] [facility] [address] [place], [place]. Ph. [phone] Kathleen Stanton DDS. [address] [facility]. Ph. [phone] [facility]. [address] [place], [place]. Ph. [phone] [facility]. [address] [place] [address], [place], [place]. Ph. [phone] [facility] [address] [place] [phone]. Ph. [facility]. [address] [place] [address] [address] [place]. Ph. [facility]. [address] [place], [place]. Ph. [phone] Sepsis Event Note - Evaluation Sepsis Screening Result: No Definite Risk - Focused Exam Vital Signs: Vital Signs Temp Pulse Resp BP Pulse Ox 11/17/19 12:30 35.6 C 93 20 132/83 100 Date Exam was Performed: 11/17/19 Time Exam was Performed: 13:35
[2019-11-17 13:48] VITALS: BP 124/89; PULSE 99
== END 2019-11-17 13:48 | disposition home or self-care (01) ==
LOC: MW.ED 12:07
DX: F41.9 Anxiety disorder, unspecified (principal); F31.9 Bipolar disorder, unspecified; F20.9 Schizophrenia, unspecified; Z79.899 Other long term (current) drug therapy; Z88.0 Allergy status to penicillin; Z91.041 Radiographic dye allergy status
CPT/HCPCS: 96374; 96375; 99283; J1200; J2060

== ENCOUNTER 2019-11-21 17:39 | Emergency (ER) | payer MEDICAID ==
[2019-11-21 18:45] VITALS: BP 133/94; PULSE 82
--- NOTE | 2019-11-21 19:52 | EDM.PDOC ---
ED HPI GENERAL MEDICAL PROBLEM - General Chief Complaint: General Stated Complaint: PANIC ATTACK Time Seen by Provider: 11/21/19 19:06 - History of Present Illness INITIAL COMMENTS - FREE TEXT/NARRATIVE: HPI 39-year-old female with schizophrenia, bipolar disorder, psychosis, anxiety/ panic disorder, a history of PCP and amphetamine abuse presents complaining of a panic attacks since the end of August and is requesting Ativan. No SI or HI. ROS with no recent constitutional symptoms. Triage note: Pt states that she is having a panic attack since the end of august and states she wants ativan. Exam HR 82, RR 16, BP 133/94, T 36.7C, SaO2 95% on room air. Gen: Pleasant, non- toxic appearing, resting comfortably HEENT: NC, AT, PEERL, EOMI. Resp: Clear to auscultation bilaterally. Unlabored respirations with a normal work of breathing. Card: Regular rate and rhythm. Extremities warm and well perfused. GI: Non-distended. : Deferred MSK: No visible deformities, strength and tone without visually appreciable deficit. Neuro: alert and oriented 3, no facial asymmetry, vision and hearing WNL. Heme/Lymph: Deferred Skin: Normal color with no visible lesions (other than noted above). Psych: markedly unusual mood and affect. MDM Previous chart, nursing note, and vitals reviewed. A: 39-year-old female with schizophrenia, bipolar disorder, psychosis, anxiety/ panic disorder, a history of PCP and amphetamine abuse presents complaining of a panic attacks since the end of August and is requesting Ativan. DDx & Evaluation: patient well-appearing, no identifiable acute abnormalities. States that due to the way in the emergency department she has had her panic resolve. Is willing a trial of history for sleep tonight and follow up with your mental health care provider. Impression: anxiety. - Related Data Allergies Allergy/AdvReac Type Severity Reaction Status Date / Time iodine Allergy Hives Verified 11/21/19 18:42 Penicillins Allergy Cannot Verified 11/21/19 18:42 Remember Home Meds: Home Meds Ziprasidone HCl [Geodon] 80 mg PO BID 09/05/19 [History] busPIRone [Buspar] 30 mg PO TID 09/05/19 [History] DULoxetine HCl [Cymbalta] 60 mg PO DAILY 09/23/19 [History] hydrOXYzine pamoate [Vistaril] 25 mg PO BEDTIME #4 cap 11/21/19 [Rx] Past Medical History - Past Health History Medical/Surgical History: Denies Medical/Surgical History HEENT History: Reports: None, Other (See Below) Cardiovascular History: Reports: None, Other (See Below) Other Cardiovascular History: unable to assess Respiratory History: Reports: None, Other (See Below) Other Respiratory History: unable to assess Gastrointestinal History: Reports: None, Other (See Below) Other Gastrointestinal History: unable to assess Genitourinary History: Reports: None, Other (See Below) Other Genitourinary History: unable to assess RN FLIGHT History: Reports: None, Other (See Below) Other RN FLIGHT History: unable to assess Musculoskeletal History: Reports: None, Other (See Below) Other Musculoskeletal History: unable to assess Neurological History: Reports: None, Other (See Below) Other Neuro History: unable to assess Psychiatric History: Reports: Anxiety, Bipolar, Depression, Mood Swings, Psych Hospitalization(s), Psychosis, Other (See Below) Other Psychiatric History: unable to assess Endocrine/Metabolic History: Reports: None, Other (See Below) Other Endocrine/Metabolic History: unable to assess Hematologic History: Reports: None, Other (See Below) Other Hematologic History: unable to assess Immunologic History: Reports: None, Other (See Below) Other Immunologic History: unable to assess Oncologic (Cancer) History: Reports: None, Other (See Below) Other Oncologic History: unable to assess Dermatologic History: Reports: None, Other (See Below) Other Dermatologic History: unable to assess - Infectious Disease History Infectious Disease History: Reports: None Other Infectious Disease History: unable to assess - Past Surgical History HEENT Surgical History: Reports: None, Other (See Below) Cardiovascular Surgical History: Reports: None, Other (See Below) Respiratory Surgical History: Reports: None, Other (See Below) GI Surgical History: Reports: None, Other (See Below) Female Surgical History: Reports: None, Other (See Below) Endocrine Surgical History: Reports: None, Other (See Below) Neurological Surgical History: Reports: None, Other (See Below) Musculoskeletal Surgical History: Reports: None, Other (See Below) Dermatological Surgical History: Reports: None, Other (See Below) Social & Family History - Family History Family Medical History: Unobtainable - Tobacco Use Smoking Status *Q: Never Smoker - Caffeine Use Caffeine Use: Reports: None Caffeine Use Comment: unable to assess - Recreational Drug Use Recreational Drug Use: No ED ROS GENERAL - Review of Systems Review Of Systems: See Below ED EXAM, GENERAL - Physical Exam Exam: See Below Course - Vital Signs Last Recorded V/S: Last Vital Signs Temp 36.7 C 11/21/19 18:42 Pulse 82 11/21/19 18:42 Resp 16 11/21/19 18:42 BP 133/94 H 11/21/19 18:42 Pulse Ox 95 11/21/19 18:42 Departure - Departure Time of Disposition: 19:51 Disposition: Home, Self-Care 01 Clinical Impression: Anxiety - Discharge Information Prescriptions: hydrOXYzine pamoate [Vistaril] 25 mg PO BEDTIME #4 cap Referrals: Maria G Acosta NP [Primary Care Provider] - Additional Instructions: You were in seen in the [facility] Emergency Department for evaluation of anxiety. Please follow up with your mental health provider within 24 hours. Madeleine read and follow all of the instructions below. Please follow up with your primary care physician as needed. When calling for follow-up care, please make the office aware that this follow-up is from your recent emergency room visit. If for any reason you are refused follow-up, please contact the [facility] Emergency Department at and asked to speak to the emergency department charge nurse. Your care today was limited to identifying and treating emergent medical problems only. Many people have subtle differences in their test results that require follow up with their outpatient physician(s) to correctly determine if this represents a normal variation or concerning abnormality with respect to your specific health. The care given to you today was limited to identifying and treating emergent medical problems - you need to request a copy of all of your medical records from today's visit and follow up with your outpatient physician(s) to review both today's visit and your overall health. If you have any new symptoms or if you are at all concerned about your health please return immediately to the emergency department. Prescriptions: If you are uninsured or have financial difficulties with filling your prescription(s), you may consider using a free pharmacy discount service such as [employer] ([employer]) or [employer] (gay[employer]). These services allow you to search for a medication on your phone (or computer) and obtain a coupon that usually has a significant discount from the list dempsey at a pharmacy. Your physician as well as [facility] does not have a financial relationship with either of these services. You may also wish to speak with your physician to determine if lower cost prescriptions are possible. Obtaining primary care: 1. [facility] provides pediatrics (children), family medicine (children, adults, and some obstetrical care), and internal medicine (adults). Further specialty care is also available. Same day appointments are available. They may be contacted at [phone] and are open Friday through Friday 8 AM to 5 PM. The [facility] are located at [facility], [address] [place] [address]. 2. [facility] offers family medicine, internal medicine, [facility], and further specialty care. [facility] may be contacted at [phone]. [facility] is located at [address] [facility] [address]. 3. If you have health insurance, please also contact your insurer for a list of accepting providers under your policy, you may contact these providers for further health care. Occupational health: Work related injuries may consider following up with [facility], . Occupational health services are located at [address] [place] [id number] and are open Friday through Friday from 7: 30 am to 5:00 pm. Obstetrical and Gynecological Care: [facility], , Friday through Friday 8 AM to 5 PM. [address], [place] [address]. Eyecare: If you have an eye injury you should follow up with your inspector open die or with [facility], at [phone] or [phone] , they are located at [address] [place] [address]. Dental Care Yung Anderson DDS. [address] [facility] [place], [place]. Ph. [phone] Brendon Elinor Anderson DDS [place]. [address] [facility] [address], [place], [place]. Ph. Baldemar Smith DDS. 10 / [facility] [place], [place]. Ph. [phone] Salvador Saleh DDS. [address] [facility] [address] [place], [place]. Ph. [phone] Antoine Carvalho DDS PC. [address] [facility] [address] [place], [place]. Ph. Kathleen Stanton DDS. [address] [facility]. Ph. [phone] [facility]. [address] [place], [place]. Ph. [phone] [facility]. [address] [place] [address], [place], [place]. Ph. [phone] [facility] [address] [place] [phone]. Ph. [facility]. [address] [place] [address] [address]. [place], [place]. Ph. [phone] [facility]. [address] [place], [place]. Ph. [phone] Sepsis Event Note - Evaluation Sepsis Screening Result: No Definite Risk - Focused Exam Vital Signs: Vital Signs Temp Pulse Resp BP Pulse Ox 11/21/19 18:42 36.7 C 82 16 133/94 H 95 Date Exam was Performed: 11/21/19 Time Exam was Performed: 19:50
== END 2019-11-21 20:18 | disposition home or self-care (01) ==
LOC: MW.ED 17:39
DX: F41.9 Anxiety disorder, unspecified (principal); F32.9 Major depressive disorder, single episode, unspecified; Z88.0 Allergy status to penicillin; Z88.8 Allergy status to other drugs, medicaments and biological substances; Z79.899 Other long term (current) drug therapy
CPT/HCPCS: 99282; 99283

== ENCOUNTER 2020-03-23 19:31 | Emergency (ER) | payer MEDICAID ==
[2020-03-23] MEDS ORDERED: Haloperidol Lactate 5 MG/ML SDV IM STA (19:34)
[2020-03-23] MEDS ORDERED: LORazepam 2 MG/ML SDV IM ONE (19:35)
[2020-03-23] MEDS ORDERED: diphenhydrAMINE 50 MG/ML SDV IM ONE (19:36)
[2020-03-23] MEDS ORDERED: Haloperidol Lactate 5 MG/ML SDV IM ONE (19:36)
[2020-03-23] MEDS ORDERED: diphenhydrAMINE 50 MG/ML SDV ONE (19:38)
--- NOTE | 2020-03-23 19:45 | EDM.PDOCBH ---
ED HPI GENERAL MEDICAL PROBLEM - General Chief Complaint: Behavioral/Psych Stated Complaint: PANIC ATTACK Time Seen by Provider: 03/23/20 19:38 Source of Information: Reports: Patient History Limitations: Reports: No Limitations - History of Present Illness INITIAL COMMENTS - FREE TEXT/NARRATIVE: This 40-year-old female presents the emergency room with a chief complaint of anxiety. Patient states that she cannot breathe. Patient is yelling and very anxious at the time of her presentation. Patient has a history of paranoid schizophrenia and of anxiety. This is patient's usual state when she presents to the emergency room. Onset: Today Duration: Hour(s): Location: Reports: Chest Severity: Moderate Worsens with: Reports: Breathing Associated Symptoms: Reports: No Other Symptoms - Related Data Allergies Allergy/AdvReac Type Severity Reaction Status Date / Time iodine Allergy Hives Verified 03/23/20 20:52 Penicillins Allergy Cannot Verified 03/23/20 20:52 Remember Home Meds: Home Meds busPIRone [Buspar] 30 mg PO TID 09/05/19 [History] ziprasidone HCL [Geodon] 80 mg PO BID 09/05/19 [History] DULoxetine HCl [Cymbalta] 60 mg PO DAILY 09/23/19 [History] hydrOXYzine pamoate [Vistaril] 25 mg PO BEDTIME #4 cap 11/21/19 [Rx] Past Medical History - Past Health History Medical/Surgical History: Denies Medical/Surgical History HEENT History: Reports: None, Other (See Below) Cardiovascular History: Reports: None, Other (See Below) Other Cardiovascular History: unable to assess Respiratory History: Reports: None, Other (See Below) Other Respiratory History: unable to assess Gastrointestinal History: Reports: None, Other (See Below) Other Gastrointestinal History: unable to assess Genitourinary History: Reports: None, Other (See Below) Other Genitourinary History: unable to assess TRACTOR MECHANIC History: Reports: None, Other (See Below) Other TRACTOR MECHANIC History: unable to assess Musculoskeletal History: Reports: None, Other (See Below) Other Musculoskeletal History: unable to assess Neurological History: Reports: None, Other (See Below) Other Neuro History: unable to assess Psychiatric History: Reports: Anxiety, Bipolar, Depression, Mood Swings, Psych Hospitalization(s), Psychosis, Other (See Below) Other Psychiatric History: unable to assess Endocrine/Metabolic History: Reports: None, Other (See Below) Other Endocrine/Metabolic History: unable to assess Hematologic History: Reports: None, Other (See Below) Other Hematologic History: unable to assess Immunologic History: Reports: None, Other (See Below) Other Immunologic History: unable to assess Oncologic (Cancer) History: Reports: None, Other (See Below) Other Oncologic History: unable to assess Dermatologic History: Reports: None, Other (See Below) Other Dermatologic History: unable to assess - Infectious Disease History Infectious Disease History: Reports: None Other Infectious Disease History: unable to assess - Past Surgical History HEENT Surgical History: Reports: None, Other (See Below) Cardiovascular Surgical History: Reports: None, Other (See Below) Respiratory Surgical History: Reports: None, Other (See Below) GI Surgical History: Reports: None, Other (See Below) Female Surgical History: Reports: None, Other (See Below) Endocrine Surgical History: Reports: None, Other (See Below) Neurological Surgical History: Reports: None, Other (See Below) Musculoskeletal Surgical History: Reports: None, Other (See Below) Dermatological Surgical History: Reports: None, Other (See Below) Social & Family History - Family History Family Medical History: Unobtainable - Caffeine Use Caffeine Use: Reports: None Caffeine Use Comment: unable to assess ED ROS GENERAL - Review of Systems Review Of Systems: See Below Constitutional: Reports: No Symptoms HEENT: Reports: No Symptoms Respiratory: Reports: Shortness of Breath Cardiovascular: Reports: Lightheadedness Endocrine: Reports: No Symptoms GI/Abdominal: Reports: No Symptoms : Reports: No Symptoms Musculoskeletal: Reports: No Symptoms Skin: Reports: No Symptoms Neurological: Reports: Paresthesia, Tremors Psychiatric: Reports: Anxiety, Depression, Suicidal Ideation Hematologic/Lymphatic: Reports: No Symptoms Immunologic: Reports: No Symptoms ED EXAM, BEHAVIORAL HEALTH - Physical Exam Exam: See Below Exam Limited By: No Limitations General Appearance: Alert, WD/WN, No Apparent Distress Eye Exam: Bilateral Eye: Normal Fundi, Normal Inspection, PERRL Ears: Normal External Exam, Normal Canal, Hearing Grossly Normal, Normal TMs Nose: Normal Inspection, Normal Mucosa Throat/Mouth: Normal Inspection, Normal Lips, Normal Teeth, Normal Gums, Normal Oropharynx, Normal Voice, No Airway Compromise Head: Atraumatic, Normocephalic Neck: Normal Inspection, Supple, Non-Tender, Full Range of Motion Respiratory/Chest: No Respiratory Distress, Lungs Clear, Normal Breath Sounds, No Accessory Muscle Use Cardiovascular: Normal Peripheral Pulses, Regular Rate, Rhythm, No Edema, No JVD , No Murmur, No Rub GI/Abdominal: Normal Bowel Sounds, Soft, Non-Tender, No Organomegaly, No Distention, No Abnormal Bruit (Female) Exam: Normal External Exam Rectal (Female) Exam: Normal Exam, Normal Rectal Tone Back Exam: Normal Inspection, Full Range of Motion Extremities: Normal Inspection, Normal Range of Motion, No Pedal Edema, Normal Capillary Refill Neurological: Alert, Normal Mood/Affect, CN II-XII Intact, Normal Cognition, Normal Gait, Normal Reflexes, No Motor/Sensory Deficits, Oriented x 3 Psychiatric: Alert, Normal Affect, Normal Cognition Skin Exam: Warm, Dry, Intact, Normal color EKG INTERPRETATION EKG Date: 03/23/20 Time: 08:28 Rhythm: NSR Reynolds: Normal P-Wave: Present QRS: Normal ST-T: Normal QT: Normal COURSE, BEHAVIORAL HEALTH COMP - Course Vital Signs: Last Vital Signs Temp 97.3 F 03/23/20 19:45 Pulse 87 03/23/20 20:35 Resp 20 03/23/20 20:35 BP 151/101 H 03/23/20 20:35 Pulse Ox 99 03/23/20 20:35 40-year-old female presented to the emergency room with a chief complaint of severe anxiety. Dates that her recently lost his job and she has difficulty sleeping. Has a history of anxiety and bipolar disorder. Patient states she is taking her medications. And mainly complaining of difficulty breathing minimal chest pain. Patient denies suicidal or ideations. Physical exam patient's is noncontributory except for severe anxiety. Patient running back and forth to the emergency room screaming she needs a shot. Patient was given Ativan, Benadryl and Haldol initially. Patient still complaining of severe anxiety patient given another milligram of Ativan with Geodon and this seemed to subside her symptoms. Patient also given a liter of fluids and electrolytes and CBC were drawn. Patient also had a EKG which was normal. Patient's labs are all normal including cardiac enzymes CBC and electrolytes. I have discussed the case with the patient. Tums have subsided she will follow with her primary care physician. I will discharge the patient without home medication since she has a physician who prescribes this to her and she does have a history with drug addiction. The diagnosis on this patient is severe anxiety which is resolved and bipolar disorder. Orders, Labs, Meds: Active Orders 24 hr Category Date Time Status EKG 12 Lead [EKG Documentation Completion] [RC] STAT Care 03/23/20 19:56 Ordered COMPREHENSIVE METABOLIC PN,CMP [CHEM] Stat Lab 03/23/20 19:56 Ordered TROPONIN I [CHEM] Stat Lab 03/23/20 19:56 Ordered Laboratory Tests 03/23/20 Range/Units 20:10 WBC 11.63 H (4.0-11.0) K/uL RBC 4.32 (4.30-5.90) M/uL Hgb 13.2 (12.0-16.0) g/dL Hct 39.7 (36.0-46.0) % MCV 91.9 (80.0-98.0) fL MCH 30.6 (27.0-32.0) pg MCHC 33.2 (31.0-37.0) g/dL RDW Std Deviation 44.3 (28.0-62.0) fl RDW Coeff of Jules 13 (11.0-15.0) % Plt Count 307 (150-400) K/uL MPV 9.80 (7.40-12.00) fL Neut % (Auto) 64.4 (48.0-80.0) % Lymph % (Auto) 26.9 (16.0-40.0) % [place] % (Auto) 7.5 (0.0-15.0) % Eos % (Auto) 1.0 (0.0-7.0) % Baso % (Auto) 0.2 (0.0-1.5) % Neut # (Auto) 7.5 H (1.4-5.7) K/uL Lymph # (Auto) 3.1 H (0.6-2.4) K/uL [place] # (Auto) 0.9 H (0.0-0.8) K/uL Eos # (Auto) 0.1 (0.0-0.7) K/uL Baso # (Auto) 0.0 (0.0-0.1) K/uL Nucleated RBC % 0.0 /100WBC Nucleated RBCs # 0 K/uL Medications Discontinued Medications Generic Name Dose Route Start Last Admin Trade Name Kaliq PRN Reason Stop Dose Admin Diphenhydramine HCl 50 mg 03/23/20 19:36 03/23/20 19:51 Benadryl IM 03/23/20 19:37 50 mg ONETIME ONE Administration Diphenhydramine HCl Confirm 03/23/20 19:38 03/23/20 19:52 Benadryl Administered 03/23/20 19:39 Not Given Dose 50 mg .ROUTE .STK-MED ONE Haloperidol Lactate 5 mg 03/23/20 19:36 03/23/20 19:50 Haldol IM 03/23/20 19:37 5 mg ONETIME ONE Administration Sodium Chloride 1,000 mls @ 1,000 mls/hr 03/23/20 19:52 03/23/20 20:10 Normal Saline IV 03/23/20 20:51 1,000 mls/hr .Bolus ONE Administration Lorazepam 1 mg 03/23/20 19:35 03/23/20 19:52 Ativan IM 03/23/20 19:36 1 mg ONETIME ONE Administration Lorazepam 1 mg 03/23/20 19:52 03/23/20 20:10 Ativan IVPUSH 03/23/20 19:53 1 mg ONETIME ONE Administration Sterile Water 1.2 ml 03/23/20 19:53 03/23/20 20:11 Sterile Water For Injection INJECT 03/23/20 19:54 1.2 ml ONETIME ONE Administration Ziprasidone 10 mg 03/23/20 19:53 03/23/20 20:10 Geodon IM 03/23/20 19:54 10 mg ONETIME ONE Administration Departure - Departure Time of Disposition: 21:08 Disposition: Home, Self-Care 01 Condition: Good Clinical Impression: Acute anxiety, Anxiety Anxiety disorder Qualifiers: Anxiety disorder type: other mixed anxiety disorder Qualified Code(s): F41.3 - Other mixed anxiety disorders - Discharge Information Instructions: Living With Anxiety, Supporting Someone With Anxiety Forms: ED Department Discharge Additional Instructions: 1. He is to follow-up with her primary care physician 2. The patient is to return for any problems Sepsis Event Note - Focused Exam Vital Signs: Vital Signs Temp Pulse Resp BP Pulse Ox 03/23/20 20:35 87 20 151/101 H 99 03/23/20 19:45 97.3 F 108 H 26 H 128/80 99 Date Exam was Performed: 03/23/20 Time Exam was Performed: 20:58 - My Orders Last 24 Hours: My Active Orders 03/23/20 19:56 EKG 12 Lead [EKG Documentation Completion] [RC] STAT COMPREHENSIVE METABOLIC PN,CMP [CHEM] Stat TROPONIN I [CHEM] Stat - Assessment/Plan Last 24 Hours: My Active Orders 03/23/20 19:56 EKG 12 Lead [EKG Documentation Completion] [RC] STAT COMPREHENSIVE METABOLIC PN,CMP [CHEM] Stat TROPONIN I [CHEM] Stat
[2020-03-23] MEDS ORDERED: LORazepam 2 MG/ML SDV IVPUSH ONE (19:52)
[2020-03-23] MEDS ORDERED: Sodium Chloride 0.9% 1,000 ML IV ONE (19:52)
[2020-03-23] MEDS ORDERED: Water For Injection, Sterile 20 ML SDV INJECT ONE (19:53)
[2020-03-23] MEDS ORDERED: Ziprasidone Mesylate 20 MG Vial IM ONE (19:53)
[2020-03-23 20:36] VITALS: BP 151/101; PULSE 87
--- NOTE | 2020-03-23 20:51 | CR ---
Chest: Frontal view of the chest was obtained. Comparison: Prior chest x-ray of 03/28/19. Heart size and mediastinum are normal. Lungs are clear with no acute parenchymal change. Bony structures appear within normal limits. Impression: 1. Nothing acute is appreciated on frontal chest x-ray. Diagnostic code #1 This report was dictated in MDT
[2020-03-23 20:56] LABS: BLOOD UREA NITROGEN,BUN 14 mg/dL (7.0-18.0); CARBON DIOXIDE,CO2 22.7 mmol/L (21.0-32.0); CHLORIDE,CL 104 mmol/L (98-107); GLUCOSE RANDOM 112 mg/dL (74-106); POTASSIUM,K 3.5 mmol/L (3.5-5.1); SODIUM,NA 138 mmol/L (136-145)
== END 2020-03-23 21:22 | disposition home or self-care (01) ==
LOC: MW.ED 19:31
DX: F41.3 Other mixed anxiety disorders (principal); Z91.09 Other allergy status, other than to drugs and biological substances; Z88.0 Allergy status to penicillin; Z79.899 Other long term (current) drug therapy
CPT/HCPCS: 36415; 71045; 80053; 84484; 85025; 93005; 96361; 96372; 96374; 99284; J1200; J1630; J3486; J7030; 99283; J2060

== ENCOUNTER 2020-03-24 17:54 | Emergency (ER) | payer MEDICAID ==
[2020-03-24] MEDS ORDERED: Water For Injection, Sterile 20 ML SDV INJECT ONE (17:56)
[2020-03-24] MEDS ORDERED: Ziprasidone Mesylate 20 MG Vial IM ONE (17:56)
[2020-03-24] MEDS ORDERED: Haloperidol Lactate 5 MG/ML SDV IM ONE (18:20)
[2020-03-24] MEDS ORDERED: LORazepam 2 MG/ML SDV IM ONE (18:22)
[2020-03-24] MEDS ORDERED: diphenhydrAMINE 50 MG/ML SDV IVPUSH ONE (18:23)
[2020-03-24] MEDS ORDERED: diphenhydrAMINE 50 MG/ML SDV IM STA (18:48)
--- NOTE | 2020-03-24 18:56 | EDM.PDOC ---
ED HPI GENERAL MEDICAL PROBLEM - General Chief Complaint: General Stated Complaint: POSSIBLE PANIC ATTACK Time Seen by Provider: 03/24/20 17:55 - History of Present Illness INITIAL COMMENTS - FREE TEXT/NARRATIVE: History of present illness: [Patient presents to the ED complaining of anxiety. She is yelling at staff screaming that she cannot breathe demanding to see the doctor demanding to have things given to her to calm her down. She was so aggressive and uncontrollable that the nurses felt the need to call police for their safety. Patient speaking in full sentences with normal vital signs but keeps claiming she cannot breathe and is not directable. Patient presented to the ED with a similar situation last night she was given an enormous amount of anti-anxiety and antipsychotic medications before she was calm enough to be discharged. She is anxious over the situation socially and with her significant others potential job loss. She denies any homicidal or suicidal ideations and she appears to be alert and oriented to person place and time] Review of systems: As per history of present illness and below otherwise all systems reviewed and negative. Past medical history: As per history of present illness and as reviewed below otherwise noncontributory. Surgical history: As per history of present illness and as reviewed below otherwise noncontributory. Social history: No reported history of drug or alcohol abuse. Family history: As per history of present illness and as reviewed below otherwise noncontributory. Physical exam: HEENT: Atraumatic, normocephalic, pupils reactive, negative for conjunctival pallor or scleral icterus, mucous membranes moist, throat clear, neck supple, nontender, trachea midline. Lungs: Clear to auscultation, breath sounds equal bilaterally, chest nontender. Heart: S1S2, regular, negative for clicks, rubs, or JVD. Abdomen: Soft, nondistended, nontender. Negative for masses or hepatosplenomegaly. Negative for costovertebral tenderness. Pelvis: Stable nontender. Genitourinary: Deferred. Rectal: Deferred. Extremities: Atraumatic, negative for cords or calf pain. Neurovascular unremarkable. Neuro: Awake, alert, oriented. Cranial nerves II through XII unremarkable. Cerebellum unremarkable. Motor and sensory unremarkable throughout. Exam nonfocal. Psych: Patient is agitated anxious hyperventilating. Denies homicidal or suicidal ideation. Diagnostics: [] Therapeutics: [] Impression: [] Plan: It required the presence of police officers to get her to cooperate and sit down in the bed so she could be assessed by the nursing staff and given a 10 mg dose of Geodon. This had little effect on her anxiety she was given a paper bag to breathe into and coached on how to breathe normally she was then given 5 of Haldol 2 of Ativan and 50 of Benadryl IM and a further effort to calm her down. [] Definitive disposition and diagnosis as appropriate pending reevaluation and review of above. - Related Data Allergies Allergy/AdvReac Type Severity Reaction Status Date / Time iodine Allergy Hives Verified 03/24/20 18:55 Penicillins Allergy Cannot Verified 03/24/20 18:55 Remember Home Meds: Home Meds busPIRone [Buspar] 30 mg PO TID 09/05/19 [History] ziprasidone HCL [Geodon] 80 mg PO BID 09/05/19 [History] DULoxetine HCl [Cymbalta] 60 mg PO DAILY 09/23/19 [History] hydrOXYzine pamoate [Vistaril] 25 mg PO BEDTIME #4 cap 11/21/19 [Rx] OLANZapine [Olanzapine] 10 mg PO DAILY 10 Days #10 tablet 03/24/20 [Rx] Past Medical History - Past Health History Medical/Surgical History: Denies Medical/Surgical History HEENT History: Reports: None, Other (See Below) Cardiovascular History: Reports: None, Other (See Below) Other Cardiovascular History: unable to assess Respiratory History: Reports: None, Other (See Below) Other Respiratory History: unable to assess Gastrointestinal History: Reports: None, Other (See Below) Other Gastrointestinal History: unable to assess Genitourinary History: Reports: None, Other (See Below) Other Genitourinary History: unable to assess CONSULTING PROJECT DIRECTOR History: Reports: None, Other (See Below) Other CONSULTING PROJECT DIRECTOR History: unable to assess Musculoskeletal History: Reports: None, Other (See Below) Other Musculoskeletal History: unable to assess Neurological History: Reports: None, Other (See Below) Other Neuro History: unable to assess Psychiatric History: Reports: Anxiety, Bipolar, Depression, Mood Swings, Psych Hospitalization(s), Psychosis, Other (See Below) Other Psychiatric History: unable to assess Endocrine/Metabolic History: Reports: None, Other (See Below) Other Endocrine/Metabolic History: unable to assess Hematologic History: Reports: None, Other (See Below) Other Hematologic History: unable to assess Immunologic History: Reports: None, Other (See Below) Other Immunologic History: unable to assess Oncologic (Cancer) History: Reports: None, Other (See Below) Other Oncologic History: unable to assess Dermatologic History: Reports: None, Other (See Below) Other Dermatologic History: unable to assess - Infectious Disease History Infectious Disease History: Reports: None Other Infectious Disease History: unable to assess - Past Surgical History HEENT Surgical History: Reports: None, Other (See Below) Cardiovascular Surgical History: Reports: None, Other (See Below) Respiratory Surgical History: Reports: None, Other (See Below) GI Surgical History: Reports: None, Other (See Below) Female Surgical History: Reports: None, Other (See Below) Endocrine Surgical History: Reports: None, Other (See Below) Neurological Surgical History: Reports: None, Other (See Below) Musculoskeletal Surgical History: Reports: None, Other (See Below) Dermatological Surgical History: Reports: None, Other (See Below) Social & Family History - Family History Family Medical History: Unobtainable - Caffeine Use Caffeine Use: Reports: None Caffeine Use Comment: unable to assess ED ROS GENERAL - Review of Systems Review Of Systems: See Below ED EXAM, GENERAL - Physical Exam Exam: See Below Course - Vital Signs Text/Narrative:: Patient states she is out of her olanzapine 10 mg I will refill this 1 for 10 days she has an appointment with her psychologist on Friday she is encouraged not to miss this appointment as she missed her outpatient appointment last week. - Orders/Labs/Meds Meds: Medications Discontinued Medications Generic Name Dose Route Start Last Admin Trade Name Freq PRN Reason Stop Dose Admin Diphenhydramine HCl 50 mg 03/24/20 18:23 Benadryl IVPUSH 03/24/20 18:24 ONETIME ONE Haloperidol Lactate 5 mg 03/24/20 18:20 Haldol IM 03/24/20 18:21 ONETIME ONE Lorazepam 2 mg 03/24/20 18:22 Ativan IM 03/24/20 18:23 ONETIME ONE Sterile Water 1.2 ml 03/24/20 17:56 Sterile Water For Injection INJECT 03/24/20 17:57 ONETIME ONE Ziprasidone 10 mg 03/24/20 17:56 03/24/20 18:17 Ministerio IM 03/24/20 17:57 10 mg ONETIME ONE Administration Departure - Departure Time of Disposition: 18:56 Disposition: Home, Self-Care 01 Condition: Good, Fair Clinical Impression: Anxiety, Panic disorder Clinical Impression: (Ruled Out): Suicidal ideation - Discharge Information *PRESCRIPTION DRUG MONITORING PROGRAM REVIEWED*: Not Applicable *COPY OF PRESCRIPTION DRUG MONITORING REPORT IN PATIENT BRIGITTE: Not Applicable Instructions: Panic Attack, [id number] Referrals: PCP,None [Primary Care Provider] -
[2020-03-24 20:03] VITALS: BP 146/100; PULSE 102
== END 2020-03-24 19:15 | disposition home or self-care (01) ==
LOC: MW.ED 17:54
DX: F41.0 Panic disorder [episodic paroxysmal anxiety] (principal); F31.9 Bipolar disorder, unspecified; Z91.09 Other allergy status, other than to drugs and biological substances; Z88.0 Allergy status to penicillin; Z79.899 Other long term (current) drug therapy
CPT/HCPCS: 96372; 99283; J1200; J1630; J2060; J3486

== ENCOUNTER 2020-09-22 20:45 | Emergency (ER) | payer MEDICAID ==
[2020-09-22 20:56] VITALS: BP 160/100; PULSE 110
[2020-09-22] MEDS ORDERED: OLANZapine 5 MG in Water For Injection, Sterile 2.1 ML IM ONE (21:14)
[2020-09-22] MEDS ORDERED: LORazepam 2 MG/ML SDV IM ONE (21:16)
[2020-09-22] MEDS ORDERED: diphenhydrAMINE 50 MG/ML SDV IM ONE (21:18)
--- NOTE | 2020-09-22 21:24 | EDM.PDOC ---
ED HPI GENERAL MEDICAL PROBLEM - General Chief Complaint: Respiratory Problem Stated Complaint: PANIC ATTACK Time Seen by Provider: 09/22/20 21:10 - History of Present Illness INITIAL COMMENTS - FREE TEXT/NARRATIVE: HISTORY AND PHYSICAL: History of present illness: This is a 40-year-old female with a history significant for anxiety disorder/panic attack, bipolar disorder who presents ER today secondary to having a panic attack that is been persistent throughout the course of the day. Patient reports that she has tried her usual remedies at home to assist her with breaking the attack however she reports the attack is just been getting worse over the course of the last several hours. Patient denies any recent social stressors or exacerbates. Patient reports she has no cause today for the panic attack other than they usually come on on their own without any causes in the past as well. Patient denies any recent fevers, shakes, chills, nausea, vomiting, diarrhea, dysuria, frequency, urgency, chest pain. Patient reports that she typically feels short of breath with her panic attacks and she does feel short of breath today. Patient denies any history of hypertension, diabetes, liver, lung, kidney problems. Patient denies any history of PE/DVT in the past. Patient denies any tobacco, alcohol, drugs. Patient reports that she does vape and uses nicotine in her vape pen. Patient denies any drug use and her vape pen. Patient denies any abdominal or chest surgeries. Patient reports that she has had breast implants in the past. Patient reports when she has attacks like this usually needs a dose of Zyprexa and Ativan to assist her with her symptoms. Patient reports she has not had a panic attack this bad in several months. Review of systems: As per history of present illness and below otherwise all systems reviewed and negative. Past medical history: As per history of present illness and as reviewed below otherwise noncontributory. Surgical history: As per history of present illness and as reviewed below otherwise noncontributory. Social history: No reported history of drug or alcohol abuse. Family history: As per history of present illness and as reviewed below otherwise noncontribu tory. Physical exam: HEENT: Atraumatic, normocephalic, pupils reactive, negative for conjunctival pallor or scleral icterus, mucous membranes moist, throat clear, neck supple, nontender, trachea midline. Lungs: Clear to auscultation, breath sounds equal bilaterally, chest nontender. Heart: S1S2, regular, negative for clicks, rubs, or JVD. Abdomen: Soft, nondistended, nontender. Negative for masses or hepatosplenomegaly. Negative for costovertebral tenderness. Pelvis: Stable nontender. Genitourinary: Deferred. Rectal: Deferred. Extremities: Atraumatic, negative for cords or calf pain. Neurovascular unremarkable. Neuro: Awake, alert, oriented. Cranial nerves II through XII unremarkable. Cerebellum unremarkable. Motor and sensory unremarkable throughout. Exam nonfocal. Patient's ER physical exam is significant for an anxious appearing female who is laying in bed quietly. Patient is tachycardic. Patient's lungs are clear without any wheezing rales or rhonchi. Patient's calves are nontender without any evidence of DVT, no Homans' sign, no swelling. Patient has no RV heave or split S2. Diagnostics: UDS Urine EKG Therapeutics: Zyprexa Ativan 2 mg IM Benadryl 25 mg IM Assessment and plan: 40-year-old female with history significant for bipolar disorder as well as anxiety who presents to the ER today with a typical panic attack. Patient denies any homicidal or suicidal ideations. Patient reports when her panic attacks get the severe she needs to come to the hospital for an injection. Patient reports that she usually receives Zyprexa as well as Ativan and usually helps with her panic attacks. In reviewing her records, the patient appears to have gotten Haldol and Ativan in the ED on her last visit. Given the patient's request we will go ahead and order Zyprexa, Ativan and Benadryl to assist her with her symptoms. Patient will have an EKG so that we can assess her QT. 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 We will get a urine drug screen as well. 10:04 PM: Went to reevaluate patient. Patient not in her bed. Discussed with staff near the exit and report that patient walked out on her own and left with a gentleman who is waiting in the corridor. patient left without informing us that she was leaving. Patient left without completion of therapy and reevaluation was. Definitive disposition and diagnosis as appropriate pending reevaluation and review of above. Back Pain Score (Numeric/FACES): 6 - Related Data Allergies Allergy/AdvReac Type Severity Reaction Status Date / Time iodine Allergy Hives Verified 09/22/20 20:52 Penicillins Allergy Cannot Verified 09/22/20 20:52 Remember Home Meds: Home Meds busPIRone [Buspar] 30 mg PO TID 09/05/19 [History] hydrOXYzine pamoate [Vistaril] 25 mg PO BEDTIME #4 cap 11/21/19 [Rx] OLANZapine [Olanzapine] 10 mg PO DAILY 10 Days #10 tablet 03/24/20 [Rx] Past Medical History - Past Health History Medical/Surgical History: Denies Medical/Surgical History HEENT History: Reports: None, Other (See Below) Cardiovascular History: Reports: None, Other (See Below) Other Cardiovascular History: unable to assess Respiratory History: Reports: None, Other (See Below) Other Respiratory History: unable to assess Gastrointestinal History: Reports: None, Other (See Below) Other Gastrointestinal History: unable to assess Genitourinary History: Reports: None, Other (See Below) Other Genitourinary History: unable to assess SEISMIC PROSPECTING SUPERVISOR History: Reports: None, Other (See Below) Other SEISMIC PROSPECTING SUPERVISOR History: unable to assess Musculoskeletal History: Reports: None, Other (See Below) Other Musculoskeletal History: unable to assess Neurological History: Reports: None, Other (See Below) Other Neuro History: unable to assess Psychiatric History: Reports: Anxiety, Bipolar, Depression, Mood Swings, Psych Hospitalization(s), Psychosis, Other (See Below) Other Psychiatric History: unable to assess Endocrine/Metabolic History: Reports: None, Other (See Below) Other Endocrine/Metabolic History: unable to assess Hematologic History: Reports: None, Other (See Below) Other Hematologic History: unable to assess Immunologic History: Reports: None, Other (See Below) Other Immunologic History: unable to assess Oncologic (Cancer) History: Reports: None, Other (See Below) Other Oncologic History: unable to assess Dermatologic History: Reports: None, Other (See Below) Other Dermatologic History: unable to assess - Infectious Disease History Infectious Disease History: Reports: Chicken Pox Other Infectious Disease History: unable to assess - Past Surgical History HEENT Surgical History: Reports: None, Other (See Below) Cardiovascular Surgical History: Reports: None, Other (See Below) Respiratory Surgical History: Reports: None, Other (See Below) GI Surgical History: Reports: None, Other (See Below) Female Surgical History: Reports: None, Other (See Below) Endocrine Surgical History: Reports: None, Other (See Below) Neurological Surgical History: Reports: None, Other (See Below) Musculoskeletal Surgical History: Reports: None, Other (See Below) Dermatological Surgical History: Reports: None, Other (See Below) Social & Family History - Family History Family Medical History: Unobtainable - Tobacco Use Tobacco Use Status *Q: Never Tobacco User - Caffeine Use Caffeine Use: Reports: Coffee, Soda Caffeine Use Comment: unable to assess - Recreational Drug Use Recreational Drug Use: No ED ROS GENERAL - Review of Systems Review Of Systems: See Below ED EXAM, GENERAL - Physical Exam Exam: See Below #1 Interpretation EKG Interpretation Comments: EKG: As interpreted by ER physician: Raul: Nonspecific ST-T wave abnormalities Normal axis No evidence of ST elevation PA Normal sinus rhythm heart rate of 81 Course - Vital Signs Last Recorded V/S: Last Vital Signs Temp 98.2 F 09/22/20 20:53 Pulse 110 H 09/22/20 20:53 Resp 22 H 09/22/20 20:53 BP 160/100 H 09/22/20 20:53 Pulse Ox 95 09/22/20 20:53 - Orders/Labs/Meds Meds: Medications Discontinued Medications Generic Name Dose Route Start Last Admin Trade Name Silvana PRN Reason Stop Dose Admin Diphenhydramine HCl 25 mg 09/22/20 21:18 09/22/20 21:26 Benadryl IM 09/22/20 21:19 25 mg ONETIME ONE Administration Olanzapine 5 mg/ Sterile Water 2.1 mls @ 999 mls/hr 09/22/20 21:14 09/22/20 21:26 IM 09/22/20 21:15 999 mls/hr ONETIME ONE Administration Lorazepam 2 mg 09/22/20 21:16 09/22/20 21:26 Ativan IM 09/22/20 21:17 2 mg ONETIME ONE Administration Departure - Departure Time of Disposition: 22:06 Disposition: Eloped 07 Condition: Undetermined Clinical Impression: Acute anxiety - Discharge Information Referrals: PCP,None [Primary Care Provider] - Forms: ED Department Discharge Sepsis Event Note (ED) - Evaluation Sepsis Screening Result: No Definite Risk
== END 2020-09-22 22:00 | disposition left against medical advice (07) ==
LOC: MW.ED 20:45
DX: F41.9 Anxiety disorder, unspecified (principal); F31.9 Bipolar disorder, unspecified; Z79.899 Other long term (current) drug therapy; Z91.048 Other nonmedicinal substance allergy status; Z88.0 Allergy status to penicillin
CPT/HCPCS: 93005; 96372; 99283; J1200; J2060; J3490; 93010

== ENCOUNTER 2022-12-02 02:01 | Emergency (ER) | payer MEDICAID ==
[2022-12-02] MEDS ORDERED: Ondansetron 4 MG/2 ML SDV IVPUSH ONE (02:17)
[2022-12-02] MEDS ORDERED: Sodium Chloride 0.9% 1,000 ML IV ONE (02:17)
[2022-12-02] MEDS ORDERED: Morphine 4 MG/ML Syringe IVPUSH ONE (02:17)
[2022-12-02] MEDS ORDERED: Ketorolac 30 MG/ML SDV IVPUSH ONE (02:17)
[2022-12-02 03:04] LABS: CARBON DIOXIDE,CO2 24.6 mmol/L (21.0-32.0); POTASSIUM,K 4.1 mmol/L (3.5-5.1)
[2022-12-02] MEDS ORDERED: cefTRIAXone 1 GM in Sodium Chloride 0.9% 50 ML IV ONE (03:50)
[2022-12-02] MEDS ORDERED: Acetaminophen/oxyCODONE 325-5 MG Tab PO ONE (04:15)
[2022-12-02 04:28] VITALS: BP 142/74; PULSE 74
== END 2022-12-02 04:27 | disposition home or self-care (01) ==
LOC: MW.ED 02:01
DX: N39.0 Urinary tract infection, site not specified (principal); Z88.0 Allergy status to penicillin; Z91.041 Radiographic dye allergy status
CPT/HCPCS: 36415; 74176; 80053; 81003; 81025; 83690; 85025; 96361; 96365; 96375; 99284; A9270; J0696; J1885; J2270; J2405; J7030; J7050

== ENCOUNTER 2022-12-13 02:27 | Emergency (ER) | payer MEDICAID ==
[2022-12-13] MEDS ORDERED: Nitrofurantoin Monohydrate/Macrocrystalline 100 MG Cap PO STA (03:08)
[2022-12-13 04:01] VITALS: BP 135/90; PULSE 92
== END 2022-12-13 04:01 | disposition home or self-care (01) ==
LOC: MW.ED 02:27
DX: N39.0 Urinary tract infection, site not specified (principal); Z88.0 Allergy status to penicillin; Z91.041 Radiographic dye allergy status
CPT/HCPCS: 81001; 81025; 87086; 99284; A9270; 99283

== ENCOUNTER 2025-07-16 02:12 | Emergency (ER) | payer MEDICAID ==
[2025-07-16] MEDS ORDERED: Amoxicillin/Clavulanate K 875-125 MG Tab ONE (02:59)
[2025-07-16] MEDS: Amoxicillin/Clavulanate K 875-125 MG Tab PO ONE (03:05)
[2025-07-16 03:09] VITALS: BP 123/74; PULSE 76
== END 2025-07-16 03:08 | disposition home or self-care (01) ==
LOC: MW.ED 02:12
DX: J01.91 Acute recurrent sinusitis, unspecified (principal); Z79.899 Other long term (current) drug therapy; Z88.8 Allergy status to other drugs, medicaments and biological substances; Z88.0 Allergy status to penicillin
CPT/HCPCS: 99284; A9270; 99283

== ENCOUNTER 2025-08-09 03:19 | Emergency (ER) | payer MEDICAID ==
[2025-08-09 03:28] VITALS: BP 151/87; PULSE 83
[2025-08-09] MEDS: Amoxicillin/Clavulanate K 875-125 MG Tab PO ONE (03:38)
[2025-08-09] MEDS: Ketorolac 30 MG/ML SDV IM ONE (03:38)
== END 2025-08-09 03:44 | disposition home or self-care (01) ==
LOC: MW.ED 03:19
DX: K03.81 Cracked tooth (principal); Z79.899 Other long term (current) drug therapy; Z88.0 Allergy status to penicillin; Z91.041 Radiographic dye allergy status
CPT/HCPCS: 96372; 99283; A9270; J1885